=== PATIENT | female | born 1940 | race Caucasian/White ===

== ENCOUNTER → 2018-04-19 13:59 | Outpatient (CLI) | payer MEDICARE, SELFPAY | PROVIDERS: Family Provider Physician Assistant; PCP Physician Assistant; Visit Provider Physician Assistant | DX: M81.0 Age-related osteoporosis without current pathological fracture (principal); Z78.0 Asymptomatic menopausal state; Z87.891 Personal history of nicotine dependence | CPT/HCPCS: 77080 ==

== ENCOUNTER → 2018-06-07 12:45 | Outpatient (CLI) | payer MEDICARE, SELFPAY ==
--- NOTE | 2018-06-07 13:47 | DI.MRI.S_ITS ---
PROCEDURE: MR KNEE RT WO CON INDICATIONS: Pain in right knee TECHNIQUE: Noncontrast sagittal PD fast spin echo and T2 fast spin echo with fat saturation, sagittal 3-D FLASH with fat saturation; coronal T1 spin echo and PD fast spin echo with fat saturation, and axial PD fast spin echo with fat saturation through the knee. COMPARISON: [facility], MR, KNEE WITHOUT CONTRAST, 09/24/2015, 7:06. FINDINGS: Image quality: Excellent. Menisci: The lateral meniscus appears truncated, suggestive of interval partial meniscectomy. There is no focal medial meniscal tear.. The meniscal root ligaments appear intact. Cruciate ligaments: The anterior and posterior cruciate ligaments appear intact. Medial structures: The medial collateral ligament appears intact. The posterior oblique ligament, semimembranosus tendon insertions, oblique popliteal ligament, and meniscocapsular junction appear intact. Visualized portions of the pes anserinus tendons appear normal. No abnormal bursal fluid. Lateral structures: The lateral collateral ligament, long and short heads of the biceps femoris tendon appear intact. The popliteus tendon appears normal; the popliteofibular ligament appears intact. The posterosuperior and anteroinferior popliteomeniscal fascicles appear intact. The arcuate and fabellofibular ligaments appear intact, on either side of the lateral inferior geniculate artery. Iliotibial band appears normal. Anterior structures: The quadriceps and patellar tendons appear intact. Patellar alignment is normal. No femoral trochlear dysplasia or ventral trochlear prominence. No edema in the infrapatellar fat pad. Bones and cartilage: No bone marrow contusions or fractures. Mild tricompartment osteoarthritis is seen. The cartilage of the medial and lateral femorotibial compartments, as well as the patellofemoral compartment, appears normal in thickness. Joint space: There is small amount of joint fluid. No Leigh's cyst. Normal appearing synovial plicae are incidentally noted. IMPRESSION: 1. Suggestion of interval partial lateral meniscectomy with surgical changes. No evidence of recurrent tear. No focal medial meniscal tear. 2. Cruciate ligaments are intact. 3. Mild compartment osteoarthritis. No fracture or dislocation. Small amount of joint fluid. Dictated by: Moises Felipe M.D. on 06/07/2018 at 14:40 Approved by: Moises Felipe M.D. on 06/07/2018 at 14:43
== END ==
PROVIDERS: Family Provider Physician Assistant; PCP Physician Assistant; Visit Provider Physician Assistant
DX: M25.561 Pain in right knee (principal); M17.11 Unilateral primary osteoarthritis, right knee
CPT/HCPCS: 73721

== ENCOUNTER → 2018-11-05 15:42 | Outpatient (CLI) | payer MEDICARE, SELFPAY ==
--- NOTE | 2018-11-05 | DI.MRI.S_ITS ---
PROCEDURE: MR FEMUR RT WO CON INDICATIONS: Right leg, femur pain post fall 2 years ago TECHNIQUE: Noncontrast coronal and sagittal T1 spin echo and STIR; axial T1 spin echo and T2 fast spin echo with fat saturation through the lower pelvis and thigh regions bilaterally.. COMPARISON: [facility], US, PELVIC COMPLETE, 02/17/2015, 8:31. [facility], MR, MR LUMBAR SPINE WO CON, 11/05/2018, 15:58. FINDINGS: Image quality: Excellent. Bones: The visualized bone marrow demonstrates normal signal on all sequences. The overlying cortex appears intact. No fractures lines or intra-osseous lesions. Soft tissues: The scanned muscles demonstrate normal overall bulk and internal signal. Subcutaneous tissues appear normal as well. No soft tissue masses are present. Note is made of a densely calcified presumed dystrophic uterine fibroid to the left of midline, seen also on prior ultrasound scan in 02/17/15. IMPRESSION: A source of persistent right femur pain after fall 2 years ago is not found. There is an incidental finding of a densely calcified fibroid better seen on prior ultrasound scanning from January 2015 measuring up to 3.1 cm, right uterine margin. Incidental finding. Dictated by: Jaime Carrera M.D. on 11/05/2018 at 21:05 Approved by: Jaime Carrera M.D. on 11/05/2018 at 21:10
--- NOTE | 2018-11-05 | DI.MRI.S_ITS ---
PROCEDURE: MR LUMBAR SPINE WO CON INDICATIONS: Right leg pain post fall 2 years ago TECHNIQUE: Noncontrast sagittal T1 spin echo and T2 fast echo, coronal T2, sagittal STIR, axial T1 and T2 fast spin echo through the lumbar spine. COMPARISON: [facility], , L-SPINE 2-3 VIEWS, 11/29/2007, 14:00. FINDINGS: Image quality: Excellent. Alignment and Curvature: 5 lumbar type vertebral bodies are present by plain film. There is moderate leftward curvature of the lower lumbar spine and moderate rightward curvature of the spine the thoracolumbar junction. Mild grade 1 retrolisthesis of L3 on L4, L4 on L5, and L5 on S1. Bone Marrow: Marrow is of normal overall signal. No acute vertebral body compression fractures. There is moderate reactive signal within the endplates adjacent to the L1-L2, L2-L3, and L3-L4 intervertebral discs. Mild reactive signal within the endplates adjacent to the L4-L5 and L5-S1 intervertebral discs. Spinal Cord: Conus medullaris terminates at the lower L1 level. Visualized cord demonstrates normal signal and size. Paraspinous Soft Tissues: No paravertebral masses. L1-L2: Moderate disc height loss and desiccation. Mild diffuse disc bulge. Mild facet and ligament flavum hypertrophy. Mild canal stenosis. Mild left foraminal stenosis. No right foraminal stenosis. L2-L3: Severe disc height loss and desiccation. Mild diffuse disc bulge/osteophyte. Mild facet hypertrophy bilaterally. Mild canal stenosis. Moderate left and mild right foraminal stenosis. L3-L4: Moderate disc height loss and desiccation. Moderate diffuse disc bulge. Mild facet and ligamentum flavum hypertrophy. Mild epidural lipomatosis. There is moderate to severe canal stenosis, with narrowing of the AP diameter of the canal to 9 mm. There is moderate right and mild left foraminal stenosis. L4-L5: Moderate disc height loss and desiccation. Moderate diffuse disc bulge with superimposed right far lateral broad-based protrusion/osteophyte. Mild facet and ligament flavum hypertrophy bilaterally. Mild canal stenosis. Mild left and moderate right subarticular foraminal stenosis. L5-S1: Severe disc height loss and desiccation. Mild diffuse disc bulge with superimposed small central protrusion. Mild facet and ligament flavum hypertrophy. Mild canal stenosis. Moderate subarticular foraminal stenosis bilaterally. IMPRESSION: 1. Multilevel degenerative disc and facet disease, as well as ligamentum flavum hypertrophy and epidural lipomatosis. 2. Multilevel canal stenoses, worst at L3-L4, where there is moderate to severe canal stenosis. 3. Multilevel foraminal stenoses, worst at L2-L3 on the left, at L3-L4 on the right, at L4-L5 on the right, and at L5-S1 bilaterally, where there are moderate foraminal stenoses present. Dictated by: Jakub Valdez M.D. on 11/05/2018 at 16:58 Approved by: Jakub Valdez M.D. on 11/05/2018 at 17:07
== END ==
PROVIDERS: PCP Internal Medicine; Visit Provider Internal Medicine
DX: M79.604 Pain in right leg (principal); M51.36 Other intervertebral disc degeneration, lumbar region; M48.061 Spinal stenosis, lumbar region without neurogenic claudication; E88.2 Lipomatosis, not elsewhere classified; D25.9 Leiomyoma of uterus, unspecified
CPT/HCPCS: 72148; 73718

== ENCOUNTER → 2018-11-15 14:11 | Outpatient (CLI) | payer MEDICARE, SELFPAY ==
--- NOTE | 2018-11-15 | DI.MRI.S_ITS ---
PROCEDURE: MR CERVICAL SPINE WO CON INDICATIONS: CERVICAL RADICULOPATHY TECHNIQUE: Noncontrast sagittal T1 spin echo and T2 fast spin echo, sagittal STIR, foraminal oblique sagittal T2 fast spin echo, and axial gradient echo or T2 fast spin echo through the cervical spine. COMPARISON: None. FINDINGS: Image quality: Excellent. Alignment and Curvature: There is grade 1 anterolisthesis of C2 on C3 and C3 on C4, and grade 1 retrolisthesis of C5 on C6. Bone Marrow: Degenerative endplate signal changes are present at multiple levels. Spinal Cord: Visualized spinal cord has normal caliber. Subtle increased T2 signal in the cervical cord at level CV-C6. No cerebellar tonsillar herniation. Paraspinous Soft Tissues: No paravertebral masses. Prevertebral soft tissues are normal in thickness. C2-C3: Preserved disc height. Mild disc desiccation. There is mild posterior disc bulge. Moderate bilateral facet arthropathy. The central canal is patent. Mild bilateral foraminal stenosis. C3-C4: Moderate loss of disc height and disc desiccation. There is diffuse posterior disc bulge and bilateral uncovertebral hypertrophy. Severe left and moderate right facet arthropathy. The central canal is mildly narrowed. Severe left and moderate right foraminal stenosis. Probable left nerve root impingement. C4-C5: Severe loss of disc height and disc desiccation. There is diffuse posterior disc bulge and bilateral uncovertebral hypertrophy. Moderate facet arthropathy. The central canal is moderately narrowed. Severe bilateral foraminal stenosis. Probable nerve root impingement. C5-C6: Severe loss of disc height and disc desiccation. There is diffuse posterior disc bulge and bilateral uncovertebral hypertrophy. The central canal is pcqltfnp-bp-mocwsnthvl narrowed. Severe bilateral foraminal stenosis. Probable nerve root impingement. C6-C7: Severe loss of disc height and disc desiccation. There is diffuse posterior disc bulge and bilateral uncovertebral hypertrophy. The central canal is mildly narrowed. Mild bilateral foraminal stenosis. Probable nerve root impingement.. C7-T1: Normal appearance. IMPRESSION: 1. Multilevel degenerative disc disease and facet arthropathy as described. 2. Vjpejwxr-jw-fdiged central canal stenosis at C5-C6, and moderate central canal stenosis at C4-C5. 3. Multilevel foraminal stenosis as described, severe at C3-C4 on the left, C4-C5 bilaterally and C5-C6 bilaterally. 4. Subtle increased cord signal at C5-C6 suggesting myelopathy. Dictated by: Johanne Benoit M.D. on 11/15/2018 at 14:52 Approved by: Johanne Benoit M.D. on 11/15/2018 at 15:07
== END ==
PROVIDERS: PCP Internal Medicine; Visit Provider Internal Medicine
DX: M43.12 Spondylolisthesis, cervical region (principal); M50.11 Cervical disc disorder with radiculopathy, high cervical region; M47.22 Other spondylosis with radiculopathy, cervical region; M48.02 Spinal stenosis, cervical region
CPT/HCPCS: 72141

== ENCOUNTER → 2019-02-15 14:21 | Outpatient (ROUT) | payer MEDICARE, SELFPAY ==
[2019-02-15 14:38] LABS: Alanine Aminotransferase 12 IU/L (<35); Albumin 4.5 g/dL (3.5-5.0); Albumin Globulin Ratio 1.6 (1.0-2.8); Alkaline Phosphatase 87 U/L (38-126); Aspartate Aminotransferase 27 IU/L (14-36); Bilirubin Total 0.7 mg/dL (0.2-1.3); Blood Urea Nitrogen 18 mg/dL (7-17); Calcium 9.6 mg/dL (8.4-10.2); Carbon Dioxide 29 mmol/L (22-32); Chloride 97 mmol/L (98-107); Cholesterol 197 mg/dL (140-199); Estimated Glomerular Filt Rate > 60.0 mL/min (>60); Globulin 2.9 g/dL (1.7-4.1); Glucose 88 mg/dL (80-110); HDL Cholesterol 91 mg/dL (40-60); HEMOLYSIS < 15 (0-50); LDL Cholesterol Calculated 87 mg/dL (<100); Potassium 3.7 mmol/L (3.4-5.1); Sodium 138 mmol/L (137-145); Total Protein 7.4 g/dL (6.3-8.2); Triglycerides 96 mg/dL (35-150)
[2019-02-15 14:44] LABS: Prealbumin 19.1 mg/dL (17.6-36.0)
[2019-02-15 14:48] LABS: Add Manual Diff / Slide Review NO; Basophils Absolute Auto 0 /uL (0-100); Basophils Percent Auto 0.6 % (0-2); Eosinophils Absolute Auto 600 /uL (0-450); Eosinophils Percent Auto 8.8 % (2-4); Hematocrit 51.5 % (36-46); Hemoglobin 17.8 g/dL (12.0-16.0); Lymphocytes Absolute Auto 2100 /uL (1100-4500); Lymphocytes Percent Auto 32.7 % (25-40); Mean Corpuscular HGB Conc 34.6 % (30-36); Mean Corpuscular Hemoglobin 37.3 PG (26-34); Mean Corpuscular Volume 107.6 fL (80-100); Monocytes Absolute Auto 800 /uL (0-900); Neutrophils Absolute Auto 2900 /uL (1500-7000); Neutrophils Percent Auto 45.9 % (50-75); Platelet Count 178 X10^3/uL (150-400); Red Blood Cell Count 4.79 X10^6/uL (4.0-5.2); Red Cell Distribution Width 15.3 % (11.6-14.8); White Blood Cell Count 6.3 X10^3/uL (4.5-11.0)
[2019-02-15 14:55] LABS: Vitamin D 25 Hydroxy (D3) 31.6 ng/mL (30.0-100.0)
[2019-02-15 15:06] LABS: TSH w/ Reflex to FT4 1.13 uIU/mL (0.47-4.68)
== END ==
PROVIDERS: PCP Internal Medicine; Visit Provider Internal Medicine
DX: F41.9 Anxiety disorder, unspecified (principal); E55.9 Vitamin D deficiency, unspecified; L40.8 Other psoriasis; R63.4 Abnormal weight loss; I10 Essential (primary) hypertension; R53.83 Other fatigue
CPT/HCPCS: 80053; 80061; 82306; 84134; 84443; 85025

== ENCOUNTER → 2019-02-27 13:07 | Outpatient (CLI) | payer MEDICARE, SELFPAY ==
[2019-02-27 14:34] LABS: Hematocrit 52.5 % (36-46); Hemoglobin 18.2 g/dL (12.0-16.0); Mean Corpuscular HGB Conc 34.6 % (30-36); Mean Corpuscular Hemoglobin 37.1 PG (26-34); Mean Corpuscular Volume 107.3 fL (80-100); Platelet Count 190 X10^3/uL (150-400); Red Cell Distribution Width 14.7 % (11.6-14.8); White Blood Cell Count 7.1 X10^3/uL (4.5-11.0)
[2019-02-27 15:12] LABS: Neutrophils Absolute Manual 3337 /uL (3000-5900); Total Cells Counted 100
[2019-02-27 15:13] LABS: Macrocytosis 2+
[2019-03-02 14:58] LABS: Erythropoietin 36.6 mIU/mL (2.6-18.5)
[2019-03-05 13:20] LABS: Clinical Indication Hemoglobinopathy; JAK2 V617F NOT DETECTED (NOT DETECTED)
== END ==
PROVIDERS: PCP Internal Medicine; Visit Provider Internal Medicine
DX: D58.2 Other hemoglobinopathies (principal)
CPT/HCPCS: 36415; 81270; 82668; 85025

== ENCOUNTER → 2019-04-19 13:15 | Outpatient (CLI) | payer MEDICARE, SELFPAY ==
--- NOTE | 2019-04-19 | DI.RAD.S_ITS ---
PROCEDURE: XR WRIST RT 2V INDICATIONS: OPEN BITE OF RT WRIST, INITIAL ENCOUNTER TECHNIQUE: 2 views of the wrist were acquired. COMPARISON: [facility], CR, XR WRIST 3+ VIEWS RIGHT, 12/08/2016, 16:01. [facility], CR, WRIST 2 VIEWS RIGHT, 07/27/2016, 15:07. FINDINGS: Bones: No acute fractures or dislocations. No suspicious bony lesions. ORIF of the distal radius is present. Hardware is intact without periprosthetic lucency or hardware failure. Moderate first CMC as well as radiocarpal degenerative narrowing is present. No radiopaque foreign body. Scaphoid view: Not obtained. Soft tissues: No suspicious soft tissue calcifications. IMPRESSION: No radiopaque foreign body. No visualized acute fracture or dislocation. However, if clinical concern and/or pain persist, short interval imaging followup in 7-10 days is recommended, as occult injury cannot be definitively excluded. Dictated by: Danyell Wilcox M.D. on 04/19/2019 at 14:57 Approved by: Danyell Wilcox M.D. on 04/19/2019 at 15:06
--- NOTE | 2019-04-19 13:26 | DI.RAD.S_ITS ---
PROCEDURE: XR WRIST LT 2V INDICATIONS: CAT BITE TECHNIQUE: 2 views of the wrist were acquired. COMPARISON: [facility], CR, XR WRIST RT 2V, 04/19/2019, 13:12. FINDINGS: Bones: No fractures or dislocations. No suspicious bony lesions. Moderate first CMC and radiocarpal degenerative narrowing. Scaphoid view: Not obtained. Soft tissues: No suspicious soft tissue calcifications. No radiopaque foreign body. IMPRESSION: No visualized acute fracture or dislocation. However, if clinical concern and/or pain persist, short interval imaging followup in 7-10 days is recommended, as occult injury cannot be definitively excluded. No radiopaque foreign body. Dictated by: Danyell Wilcox M.D. on 04/19/2019 at 15:06 Approved by: Danyell Wilcox M.D. on 04/19/2019 at 15:07
== END ==
PROVIDERS: PCP Internal Medicine; Referring Provider Internal Medicine; Visit Provider Internal Medicine
DX: S61.551A Open bite of right wrist, initial encounter (principal); W55.01XA Bitten by cat, initial encounter
CPT/HCPCS: 73100

== ENCOUNTER → 2019-10-25 12:51 | Outpatient (CLI) | payer MEDICARE, SELFPAY ==
--- NOTE | 2019-10-25 | DI.RAD.S_ITS ---
PROCEDURE: XR CHEST 2V INDICATIONS: Hypercalcemia TECHNIQUE: 2 views of the chest were acquired. COMPARISON: [facility], , CHEST 2 VIEW, 03/14/2011, 10:49. FINDINGS: Surgical changes and devices: None. Lungs and pleura: Lungs are clear. Lung volumes are increased with flattening of the hemidiaphragms suggesting COPD. Prominent nipple shadows again noted. No pleural effusions or pneumothorax. Mediastinum: Mediastinal contours are normal. Heart size is normal. Bones and chest wall: No suspicious bony abnormalities. Soft tissues appear unremarkable. IMPRESSION: 1. Large lung volumes raising the question of COPD. Correlate clinically. 2. No acute cardiopulmonary disease. Dictated by: Nilton Catalan [facility] Interpreted: Moises Felipe MD on 10/25/2019 at 13:53 Approved by: Moiess Felipe M.D. on 10/25/2019 at 15:57
[2019-10-25 14:57] LABS: Alanine Aminotransferase 13 IU/L (<35); Albumin 4.9 g/dL (3.5-5.0); Albumin Globulin Ratio 1.5 (1.0-2.8); Alkaline Phosphatase 103 U/L (38-126); Aspartate Aminotransferase 27 IU/L (14-36); BUN Creatinine Ratio 20.3 (6-22); Bilirubin Total 0.7 mg/dL (0.2-1.3); Blood Urea Nitrogen 25 mg/dL (7-17); Calcium 10.2 mg/dL (8.4-10.2); Carbon Dioxide 26 mmol/L (22-32); Chloride 99 mmol/L (98-107); Estimated Glomerular Filt Rate 42.3 mL/min (>60); Globulin 3.2 g/dL (1.7-4.1); Glucose 96 mg/dL (80-110); HEMOLYSIS < 15 (0-50); Magnesium 2.1 mg/dL (1.6-2.3); Potassium 4.2 mmol/L (3.4-5.1); Sodium 137 mmol/L (137-145); Total Protein 8.1 g/dL (6.3-8.2)
[2019-10-25 15:39] LABS: Appearance Urine UA CLEAR; Bilirubin Urine UA NEGATIVE (NEGATIVE); Color Urine UA YELLOW; Glucose Urine UA NEGATIVE (Negative); Ketones Urine UA NEGATIVE (NEGATIVE); Leukocyte Esterase Urine UA 2+ (NEGATIVE); Nitrite Urine UA NEGATIVE (Negative); Occult Blood Urine UA 2+ (Negative); Protein Urine UA NEGATIVE (Negative); Urobilinogen Urine UA 0.2 E.U./dL (0.2)
[2019-10-25 15:53] LABS: Bacteria Urine Many (>30); RBC Urine 5-10/HPF (0-5/HPF); Renal Epithelial Cells Urine 1-5/HPF (0-1/HPF); Squamous Epithelial Cell Urine 1-5 /HPF (0-5/HPF); WBC Urine 10-30/HPF (0-5/HPF)
[2019-10-26 10:08] LABS: Parathyroid Hormone, Intact 30 pg/mL (15-65)
== END ==
PROVIDERS: PCP Internal Medicine; Referring Provider Internal Medicine; Visit Provider Internal Medicine
DX: E83.52 Hypercalcemia (principal); R91.8 Other nonspecific abnormal finding of lung field
CPT/HCPCS: 36415; 71046; 80053; 81001; 82310; 82330; 82340; 82397; 83735; 83970; 87077; 87086; 87186

== ENCOUNTER → 2019-11-08 10:06 | Outpatient (CLI) | payer MEDICARE, SELFPAY ==
--- NOTE | 2019-11-08 10:11 | DI.RAD.S_ITS ---
PROCEDURE: XR CERVICAL SPINE 2V OR 3V INDICATIONS: STATUS POST FALL, CONTUSION, R/O FRACTURE TECHNIQUE: 3 view(s) of the cervical spine were acquired. COMPARISON: None. FINDINGS: Bones: No fractures or dislocations to the T1 level. Note is made of moderately severe degenerative disc disease from C4-5 through C6-7. There is mild grade 1 anterolisthesis of C3 on C4. The lateral masses of C1 appear intact on the odontoid view. No suspicious bony lesions. Soft tissues: No prevertebral soft tissue swelling. IMPRESSION: No acute trauma found. Moderately severe degenerative disc disease and [id number] facet osteoarthritis from C4 inferiorly, with ligamentous laxity allowing mild grade 1 anterolisthesis of C3 on C4. Dictated by: Jaime Carrera M.D. on 11/08/2019 at 10:58 Approved by: Jaime Carrera M.D. on 11/08/2019 at 11:00
--- NOTE | 2019-11-08 10:11 | DI.RAD.S_ITS ---
PROCEDURE: XR RIBS RT MIN 3V W CXR 1V INDICATIONS: STATUS POST FALL, CONTUSION TECHNIQUE: 2 views of the right ribs were acquired, along with a single view chest. COMPARISON: None. FINDINGS: Surgical changes and devices: None. Bones and chest wall: No fractures or dislocations. No suspicious bony lesions. Overlying soft tissues appear unremarkable. Lungs and pleura: No pleural effusions or pneumothorax. Lungs appear clear, lung volumes are large. Mediastinum: Mediastinal contours appear normal. Heart size is normal. IMPRESSION: Large lung volumes, no evidence of trauma. Suspect COPD. Dictated by: Jaime Carrera M.D. on 11/08/2019 at 11:43 Approved by: Jaime Carrera M.D. on 11/08/2019 at 11:44
--- NOTE | 2019-11-08 10:11 | DI.RAD.S_ITS ---
PROCEDURE: XR SHOULDER RT MIN 2V INDICATIONS: STATUS POST FALL, CONTUSION, R/O FRACTURE TECHNIQUE: 3 views of the shoulder were acquired. COMPARISON: [facility], , SHOULDER MINIMUM 2VIEW RIGHT, 01/25/2012, 11:57. FINDINGS: Bones: No fractures or dislocations. No suspicious bony lesions. Visualized ribs appear intact. Soft tissues: There is a small ovoid soft tissue calcification inferior to the base of the glenoid, potentially an intra-articular loose body.. IMPRESSION: No definite acute trauma found. Small ovoid 3 x 8 mm calcification positioned beneath the area of the glenoid base and potentially small intra-articular loose body. Depending on the clinical status follow-up by MR scanning may be warranted. Dictated by: Jaime Carrera M.D. on 11/08/2019 at 11:00 Approved by: Jaime Carrera M.D. on 11/08/2019 at 11:03
--- NOTE | 2019-11-08 10:11 | DI.RAD.S_ITS ---
PROCEDURE: XR CLAVICLE RT INDICATIONS: STATUS POST FALL, CONTUSION, R/O FRACTURE TECHNIQUE: 2 views of the clavicle were acquired. COMPARISON: None. FINDINGS: Bones: No fractures or dislocations. No suspicious bony lesions. Soft tissues: No suspicious soft tissue calcifications. IMPRESSION: No trauma found. Dictated by: Jaime Carrera M.D. on 11/08/2019 at 11:00 Approved by: Jaime Carrera M.D. on 11/08/2019 at 11:00
[2019-11-08 11:42] LABS: Add Manual Diff / Slide Review NO; Basophils Absolute Auto 100 /uL (0-100); Basophils Percent Auto 1.4 % (0-2); Eosinophils Absolute Auto 600 /uL (0-450); Eosinophils Percent Auto 6.4 % (2-4); Hematocrit 38.4 % (36-46); Hemoglobin 13.2 g/dL (12.0-16.0); Lymphocytes Absolute Auto 2200 /uL (1100-4500); Lymphocytes Percent Auto 24.6 % (25-40); Mean Corpuscular HGB Conc 34.4 % (30-36); Mean Corpuscular Hemoglobin 37.6 PG (26-34); Mean Corpuscular Volume 109.4 fL (80-100); Monocytes Absolute Auto 1300 /uL (0-900); Monocytes Percent Auto 14.7 % (3-14); Neutrophils Absolute Auto 4600 /uL (1500-7000); Neutrophils Percent Auto 52.9 % (50-75); Platelet Count 249 X10^3/uL (150-400); Red Blood Cell Count 3.51 X10^6/uL (4.0-5.2); Red Cell Distribution Width 13.6 % (11.6-14.8); White Blood Cell Count 8.8 X10^3/uL (4.5-11.0)
[2019-11-08 12:02] LABS: INR 0.9 (0.9-1.3); Prothrombin Time 9.9 SECONDS (10.1-12.7)
[2019-11-08 12:05] LABS: PTT Partial Thromboplastin Tim 33 SECONDS (26.4-36.2)
[2019-11-08 12:38] LABS: Alanine Aminotransferase 12 IU/L (<35); Albumin 4.6 g/dL (3.5-5.0); Albumin Globulin Ratio 1.4 (1.0-2.8); Alkaline Phosphatase 98 U/L (38-126); Aspartate Aminotransferase 27 IU/L (14-36); BUN Creatinine Ratio 17.9 (6-22); Bilirubin Total 0.7 mg/dL (0.2-1.3); Blood Urea Nitrogen 20 mg/dL (7-17); Calcium 10.3 mg/dL (8.4-10.2); Carbon Dioxide 31 mmol/L (22-32); Chloride 97 mmol/L (98-107); Estimated Glomerular Filt Rate 47.2 mL/min (>60); Gamma Glutamyl Transpeptidase 19 U/L (12-43); Globulin 3.3 g/dL (1.7-4.1); Glucose 111 mg/dL (80-110); HEMOLYSIS < 15 (0-50); Potassium 4.8 mmol/L (3.4-5.1); Sodium 140 mmol/L (137-145); Total Protein 7.9 g/dL (6.3-8.2)
== END ==
PROVIDERS: PCP Internal Medicine; Referring Provider Internal Medicine; Visit Provider Internal Medicine
DX: F10.20 Alcohol dependence, uncomplicated (principal); S40.011A Contusion of right shoulder, initial encounter; W19.XXXA Unspecified fall, initial encounter
CPT/HCPCS: 36415; 71101; 72040; 73000; 73030; 80053; 82977; 85025; 85610; 85730

== ENCOUNTER → 2019-11-21 13:02 | Outpatient (CLI) | payer MEDICARE, SELFPAY ==
--- NOTE | 2019-11-21 | DI.MRI.S_ITS ---
PROCEDURE: MR SHOULDER RT WO CON INDICATIONS: Unspecified injury of right shoulder and upper arm TECHNIQUE: Noncontrast oblique coronal T2 fast spin echo with fat saturation, oblique sagittal T1 spin echo and T2 fast spin echo with fat saturation, axial T1 spin echo and T2 fast spin echo with fat saturation through the shoulder. COMPARISON: [facility], CR, XR SHOULDER RT MIN 2V, 11/08/2019, 10:16. FINDINGS: Image quality: Excellent. Rotator cuff: Moderate chronic thinning of the anterior supraspinatus tendon at the humeral insertion site, indicating chronic partial-thickness tearing. There is moderate thinning of the mid and posterior supraspinatus tendon, consistent with moderate grade chronic partial thickness tearing. There is moderate T2 signal elevation within the mid and posterior supraspinatus as well as the anterior and mid infraspinatus tendons at the humeral insertion site, indicating tendinopathy. Superimposed high-grade partial-thickness articular surface tear within the anterior infraspinatus/posterior supraspinatus tendon at the humeral insertion site. Subscapularis tendon demonstrates several low-grade partial-thickness articular surface tears within its mid and inferior aspects at the humeral insertion site extending to the musculotendinous junction. Teres minor tendon is intact. Bones and bursae: There is linear low T1 signal intensity traversing the distal clavicle which demonstrates severe surrounding ill-defined STIR signal elevation within the marrow space of the clavicle. Mild acromioclavicular joint degeneration. The acromion demonstrates conventional anatomy, without an os acromiale. Small amount of subacromial-subdeltoid or subcoracoid bursal fluid is present. Capsule and soft tissues: In the absence of intra-articular contrast, the labrum and glenohumeral ligaments appear intact. The biceps anchor is not well seen, possibly indicating tearing. The rotator interval appears normal, without fibrosis. The coracohumeral ligament is normal in thickness. IMPRESSION: 1. Chronic moderate grade thinning of the supraspinatus tendon. 2. Supraspinatus and infraspinatus tendinopathy with superimposed high-grade partial-thickness articular surface tear of the supraspinatus/infraspinatus tendon junction. 3. Low-grade partial-thickness articular surface tears of the subscapularis. 4. Distal clavicular fracture with surrounding contusion. 5. Subacromial bursitis. 6. Possible biceps tendon tear at its anchor. Dictated by: Jakub Valdez M.D. on 11/21/2019 at 13:44 Approved by: Jakub Valdez M.D. on 11/21/2019 at 13:48
== END ==
PROVIDERS: PCP Internal Medicine; Referring Provider Internal Medicine; Visit Provider Internal Medicine
DX: S42.031A Displaced fracture of lateral end of right clavicle, initial encounter for closed fracture (principal); S46.011A Strain of muscle(s) and tendon(s) of the rotator cuff of right shoulder, initial encounter; M75.51 Bursitis of right shoulder; M19.011 Primary osteoarthritis, right shoulder; X58.XXXA Exposure to other specified factors, initial encounter
CPT/HCPCS: 73221

== ENCOUNTER → 2020-10-28 11:41 | Outpatient (CLI) | payer OTHER, SELFPAY ==
--- NOTE | 2020-10-28 | DI.US.S_ITS ---
PROCEDURE: US RENAL COMPLETE INDICATIONS: ACUTE KIDNEY FAILURE TECHNIQUE: Real-time scanning was performed of the kidneys and bladder, with image documentation. COMPARISON: None. FINDINGS: Kidneys: Kidneys are normal in size. Right kidney measures 9.8 cm long; left kidney measures 9.2 cm long. Right renal cortical thickness is 0.9 cm; left renal cortical thickness is 1.0 cm. Renal cortical echotexture is normal. No hydronephrosis or nephrolithiasis. No suspicious solid mass lesions. Bladder: Pre-void bladder volume is 39 mL. Post-void residual is 0 mL. Pre-void images demonstrate no intraluminal masses or stones. On pre-void images, neither ureteral jets are noted with color Doppler interrogation. (Of note, ureteral jets may not be detectable in up to 25% of cases due to insufficient differences in specific gravity between ureteral and bladder urine). Miscellaneous: No free pelvic fluid. IMPRESSION: Mild bilateral renal cortical thinning; otherwise normal kidneys. Dictated by: Nilton Catalan [facility] Interpreted: Kishore Martinez MD on 10/28/2020 at 12:43 Transcribed by: SILVESTRE on 10/28/2020 at 12:44 Approved by: Kishore Martinez M.D. on 10/28/2020 at 12:58
== END ==
PROVIDERS: PCP Internal Medicine; Referring Provider Internal Medicine; Visit Provider Internal Medicine
DX: N17.9 Acute kidney failure, unspecified (principal)
CPT/HCPCS: 76770

== ENCOUNTER → 2022-12-22 11:55 | Outpatient (CLI) | payer OTHER, SELFPAY ==
--- NOTE | 2022-12-22 11:57 | DI.RAD.S_ITS ---
Bone Density Report Name: CHRISTIE FIELDS Age: 82 Sex: Female Ethnicity: White Date of : 1940 Indication: postmenopausal osteoporosis; Referring Provider: KRZYSZTOF CARMICHAEL Study: Bone densitometry was performed. Exam Date: December 22, 2022 Accession number: [id number] Bone Density: Region BMD T-score Z-score Classification AP Spine(L2, L3, L4) 1.018 -0.6 2.2 Normal Femoral Neck (Left) 0.442 -3.7 -1.3 Osteoporosis Total Hip (Left) 0.537 -3.3 -1.2 Osteoporosis Femoral Neck (Right) 0.455 -3.5 -1.2 Osteoporosis Total Hip (Right) 0.533 -3.4 -1.3 Osteoporosis Total Hip Mean 0.535 -3.4 -1.3 Osteoporosis World Health Organization criteria for BMD impression classify patients as: Normal (T-score at or above -1.0), Osteopenia (T-score between -1.0 and -2.5), or Osteoporosis (T-score at or below -2.5). 10-year Fracture Risk: FRAX not reported because: Some T-score for Spine Total or Hip Total or Femoral Neck at or below -2.5 Previous Exams: -- Region Exam Age BMD T-score BMD Change BMD Change Date g/cm2 vs Baseline vs Previous -- AP Spine (L2-L4) 12/22/2022 82 1.018 -0.6 -0.120 (-10.5%)# -0.120 (-10.5%)# 04/19/2018 77 1.138 0.5 Total Hip(Left) 12/22/2022 82 0.537 -3.3 -0.031 (-5.5%)# -0.031 (-5.5%)# 04/19/2018 77 0.568 -3.1 Total Hip(Right) 12/22/2022 82 0.533 -3.4 0.021 (4.1%)# 0.021 (4.1%)# 04/19/2018 77 0.512 -3.5 -- *Denotes significance at 95% confidence level, LSC for AP Spine = 0.022 g/cm2, LSC for Total Hip = 0.027 g/cm2 # Denotes dissimilar scan types or analysis methods Impression: The patient has osteoporosis, based on the Left Femoral Neck T-score. No significant bone loss was observed. Discussion: INCREASED RISK OF FRACTURE. BONE DENSITY IS UNDESIRABLY LOW AT ONE OR MORE SKELETAL SITES, CONSISTENT WITH POSTMENOPAUSAL OSTEOPOROSIS. This patient's lowest T-score meets the World Health Organization's (WHO) criteria for osteoporosis at one or more sites (T-score -2.5 or below). In untreated patients, the risk of osteoporotic fracture increases approximately two-fold for each 1.0 SD decrease in T-score. Low bone density is not the only risk factor for fracture; also consider factors such as patient's age, frailty or poor health, risk of falling, risk of injury, previous osteoporotic fracture, family history of osteoporosis, cigarette smoking, low body weight, etc. Not everyone with low bone mineral density has osteoporosis; osteomalacia and other metabolic bone disorders should also be considered. Patients who have osteoporosis should be evaluated for specific diseases and conditions (secondary causes) that may cause or contribute to bone loss. The [place] [employer]ocrinologists (AACE) and National Osteoporosis Foundation (NOF) recommend pharmacologic intervention for all postmenopausal women whose T-score is in this range. The patient should follow a healthful lifestyle (good nutrition with adequate calcium and vitamin D, and appropriate weight-bearing exercise). Follow-Up: Consider a repeat BMD and Vertebral Fracture Assessment (VFA) exam in 2 years or sooner if medically necessary, to reassess this patient's status. Reported by: DAFNE LEES M.D. on 12/22/2022 1:14:00 PM.
== END ==
PROVIDERS: PCP Internal Medicine; Referring Provider Internal Medicine; Visit Provider Internal Medicine
DX: Z78.0 Asymptomatic menopausal state (principal); M81.0 Age-related osteoporosis without current pathological fracture
CPT/HCPCS: 77080